=== PATIENT | male | born 1975 | race Caucasian/White ===

== ENCOUNTER 2018-02-27 15:52 | Inpatient (IN) | payer BC ==
[2018-02-27] MEDS ORDERED: fentaNYL 100 MCG/2 ML SDV IVPUSH PRN ×2 (16:56→21:31)
[2018-02-27] MEDS ORDERED: Morphine 2 MG/ML Syringe IVPUSH ONE (17:00)
[2018-02-27] MEDS ORDERED: Ondansetron 4 MG/2 ML SDV IV PRN ×2 (17:00→21:33)
[2018-02-27] MEDS: Potassium Chloride 10 MEQ in Premix Bag 1 BAG IV SCH ×2 (17:11→18:44)
[2018-02-27] MEDS: Sodium Chloride 0.9% 1,000 ML IV SCH ×2 (17:12→23:14)
--- NOTE | 2018-02-27 17:14 | PCM.HP ---
H&P History of Present Illness - General Date of Service: 02/27/18 Admit Problem/Dx: Admission Diagnosis/Problem Admission Diagnosis/Problem Acute gastritis Source of Information: Patient History Limitations: Reports: No Limitations - History of Present Illness Initial Comments - Free Text/Narative: Patient is 48 y/o white male with no significant PMH except for GERD. He started having abdominal cramps on Saturday. He took some kind of Tea. Cramp got worse but eventually he got relieved. Yesterday the abdominal cramps recurred and it was associated with vomiting. He reports several episode of vomiting. He can barely hold anything down. Vomit is coffee ground but denies linda blood. He has nausea, no fever or chills. No diarrhea. Bowel movement is normal. No melena, hematochezia or hematemesis. Abdominal cramp is diffuse, no relieving or aggravating factor. He said he has never had anything like this in the past. He notes traveling to [place] and ate outside with family. No body else is reported sick. He saw his PCP in the clinic today. He was found to be dehydrated with acute kidney injury. Creatinine bumped up to 1.8 from baseline of 0.9 3 years ago. PCP called for admission evaluation. Onset of Symptoms: Reports: Gradual Duration of Symptoms: Reports: Day(s):, Getting Worse Location: Reports: Abdomen Quality: Reports: Ache, Dull Severity: Severe Improves with: Reports: None Worsens with: Reports: None Context: Reports: Other Associated Symptoms: Reports: Nausea/Vomiting, Weakness - Related Data Allergies/Adverse Reactions: Allergies Allergy/AdvReac Type Severity Reaction Status Date / Time No Known Allergies Allergy Verified 02/27/18 16:51 Home Medications: Home Meds . [No Known Home Meds] 02/27/18 [History] Past Medical History HEENT History: Reports: Impaired Vision Gastrointestinal History: Reports: Diverticulosis Social & Family History - Family History Family Medical History: Noncontributory - Tobacco Use Smoking Status *Q: Never Smoker Second Hand Smoke Exposure: No - Caffeine Use Caffeine Use: Reports: None - Recreational Drug Use Recreational Drug Use: No H&P Review of Systems - Review of Systems: Review Of Systems: See Below General: Reports: Malaise, Weakness, Decreased Appetite HEENT: Reports: No Symptoms, Other Pulmonary: Reports: No Symptoms Cardiovascular: Reports: No Symptoms Gastrointestinal: Reports: Abdominal Pain, Anorexia, Decreased Appetite, Distension, Nausea, Vomiting Genitourinary: Reports: No Symptoms Musculoskeletal: Reports: No Symptoms Skin: Reports: No Symptoms Psychiatric: Reports: No Symptoms Neurological: Reports: No Symptoms Hematologic/Lymphatic: Reports: No Symptoms Immunologic: Reports: No Symptoms Exam - Exam Exam: See Below - Vital Signs Vital Signs: Last Vital Signs Temp 99.2 F 02/27/18 16:11 Pulse 113 H 02/27/18 16:11 Resp 20 02/27/18 16:11 BP 123/94 H 02/27/18 16:11 Pulse Ox 100 02/27/18 16:11 Weight: 206 lb 12.8 oz - Exam Quality Assessment: DVT Prophylaxis General: Alert, Oriented, Cooperative, Moderate Distress HEENT: Conjunctiva Clear Neck: Supple Lungs: Clear to Auscultation Cardiovascular: Tachycardia GI/Abdominal Exam: Normal Bowel Sounds, Soft, Non-Tender, No Organomegaly, Hernia (Male) Exam: No Hernia Rectal (Males) Exam: Deferred Back Exam: Normal Inspection Extremities: Normal Inspection Skin: Warm, Dry, Intact Neurological: Cranial Nerves Intact, Reflexes Equal Bilateral Neuro Extensive - Mental Status: Alert, Oriented x3, Normal Mood/Affect, Normal Cognition, Memory Intact Neuro Extensive - Motor, Sensory, Reflexes: CN II-XII Intact, Normal Gait, Normal Reflexes Psychiatric: Alert, Normal Affect, Normal Mood (Dry oral mucosa ) - Problem List (1) Acute gastritis SNOMED Code(s): 71587505 ICD Code: K29.00 - ACUTE GASTRITIS WITHOUT BLEEDING Status: Acute Current Visit: Yes (2) Nausea & vomiting SNOMED Code(s): 69440064 ICD Code: R11.2 - NAUSEA WITH VOMITING, UNSPECIFIED Status: Acute Current Visit: Yes (3) Acute kidney injury SNOMED Code(s): 50718413 ICD Code: N17.9 - ACUTE KIDNEY FAILURE, UNSPECIFIED Status: Acute Priority: High Current Visit: Yes Problem List Initiated/Reviewed/Updated: Yes Orders Last 24hrs: Active Orders 24 hr Category Date Time Status Patient Status [ADT] Routine ADT 02/27/18 16:43 Ordered Antiembolic Devices [RC] .Routine Care 02/27/18 16:47 Ordered Intake and Output [RC] QSHIFT Care 02/27/18 16:45 Ordered VTE/DVT Education [RC] PER UNIT ROUTINE Care 02/27/18 16:47 Ordered Vital Signs [RC] Q4H Care 02/27/18 16:43 Ordered Clear Liquid Diet [DIET] Diet 02/27/18 Dinner Ordered Regular Diet [DIET] Diet 02/27/18 Dinner Ordered BASIC METABOLIC PANEL,BMP [CHEM] Routine Lab 02/27/18 18:00 Ordered INR,PT,PROTHROMBIN TIME [COAG] Routine Lab 02/27/18 16:43 Ordered PTT,PARTIAL THROMBOPLSTIN TIME [COAG] Routine Lab 02/27/18 16:43 Ordered Heparin Sodium Med 02/27/18 21:00 Ordered 5,000 units SUBCUT Q12HR Ondansetron [Zofran] Med 02/27/18 17:00 Ordered 4 mg IV Q6HR PRN Pantoprazole [ProTONIX IV] 40 mg Med 02/27/18 17:00 Ordered Sodium Chloride 0.9% [Normal Saline] 100 ml IV Q12H Potassium Chloride [KCl 10 MEQ in Water 100 ML] 10 meq Med 02/27/18 17:00 Ordered Premix Bag 1 bag IV Q2H Sodium Chloride 0.9% @ 150 MLS/HR (1000ml) Med 02/27/18 17:00 Ordered Sodium Chloride 0.9% [Normal Saline] 1,000 ml IV ASDIRECTED fentaNYL [Sublimaze] Med 02/27/18 16:56 Ordered 25 mcg IVPUSH Q4H PRN DVT/VTE Prophylaxis Reflex [OM.PC] Routine Oth 02/27/18 16:43 Ordered Resuscitation Status Routine Resus Stat 02/27/18 16:43 Ordered Medication Orders Fentanyl (Sublimaze) 25 mcg IVPUSH Q4H PRN PRN Reason: Pain Heparin Sodium (Porcine) (Heparin Sodium) 5,000 units SUBCUT Q12HR RODOLFO Pantoprazole Sodium 40 mg/ (Sodium Chloride) 100 mls @ 200 mls/hr IV Q12H RODOLFO Sodium Chloride (Normal Saline) 1,000 mls @ 150 mls/hr IV ASDIRECTED RODOLFO Potassium Chloride 10 meq/ (Premix) 100 mls @ 100 mls/hr IV Q2H RODOLFO Stop: 02/27/18 19:59 Assessment/Plan Comment:: Assessment/Plan #Acute gastritis -IV pantoprazole 40 mg bid -Zofran prn for pain -Adequate pain control #Acute Kidney Injury -This pre-renal Azotemia from dehydration -Aggressive IVF hydration -BMP q6h -Avoid all nephrotoxic agents -Renal US #Abnormal liver test -This could be due to the acute gastritis -will repeat LFT in the AM #H/O GERD -Maalox prn -IV pantoprazole #Diet as tolerated #Full code
[2018-02-27] MEDS: Pantoprazole 40 MG in Sodium Chloride 0.9% 100 ML IV SCH (17:40)
[2018-02-27] MEDS ORDERED: Dicyclomine 20 MG/2 ML SDV IM ONE (21:25)
[2018-02-27] MEDS ORDERED: HYDROmorphone 4 MG/ML Syringe IVPUSH PRN (21:27)
[2018-02-27] MEDS: Metoclopramide 10 MG/2 ML SDV IVPUSH PRN (21:57)
[2018-02-27] MEDS: Heparin Sodium 5,000 Units/ML Vial SUBCUT SCH (21:59)
[2018-02-28] MEDS: Pantoprazole 40 MG in Sodium Chloride 0.9% 100 ML IV SCH (04:36)
[2018-02-28] MEDS: Sodium Chloride 0.9% 1,000 ML IV SCH (06:42)
[2018-02-28] MEDS: Metoclopramide 10 MG/2 ML SDV IVPUSH PRN (06:50)
[2018-02-28] MEDS ORDERED: Potassium Chloride 10 MEQ in Premix Bag 1 BAG IV ONE (08:33)
[2018-02-28] MEDS ORDERED: Acetaminophen/oxyCODONE 325-5 MG Tab PO PRN (08:34)
[2018-02-28 09:18] LABS: CHLORIDE,CL 88 mmol/L (101-111); SODIUM,NA 133 mmol/L (135-145)
--- NOTE | 2018-02-28 09:53 | CT ---
Clinical history: 42-year-old hospitalized 206 pound dehydrated diabetic male with distended abdomen and fecal smelling emesis. Scan technique: Volume acquisition of data emergency unenhanced CT scan abdomen and pelvis obtained w hile the patient was lying supine on the Siemens multi slice CT scanner [place], [place]. All data archived in the PACS system for storage, reformatting and study. Interpretation: Abnormal. 1. *Midline, supraumbilical, ventral wall hernia with incarcerated loop of small bowel and associated mechanical bowel obstruction. Defect measures 3.5 cm in width and 2.5 cm in vertical length. 2. Stomach, jejunum and ileum fluid distended. No abdominal/pelvic mass lesion or mesenteric/retroper itoneal lymphadenopathy. 3. Normal gallbladder, unenhanced liver, spleen, pancreas and adrenal glands. 4. Normal unenhanced kidneys. No sign of cortical mass, nephrolithiasis or obstructive uropathy. Urin sheng bladder unremarkable. 5. Normal caliber aortoiliac vessels. Normal lumbar spine. Lung bases clear. 6. No inflammatory "dirty" peritoneal fat, ascites or free intraperitoneal air. No femoral or inguina l hernias. CONCLUSION: Large supraumbilical ventral wall hernia with associated evidence of mechanical small bow el obstruction.
[2018-02-28] MEDS: Heparin Sodium 5,000 Units/ML Vial SUBCUT SCH (10:02)
--- NOTE | 2018-02-28 10:32 | PCM.DCSUM1 ---
Discharge Summary - Hospital Course HPI Initial Comments: Patient is 48 y/o white male with no significant PMH except for GERD. He presented with abdominal pain, nausea and vomiting x 3 days. He notes constipation but says endorsed flatulence. He was sent from clinic after he was evaluated for above and found to have acute kidney injury and dehydration. He was admitted for BRANDON due to pre-renal azotemia and gastritis vs bowel obstruction. His creatinine has improved with IV hydration but vomiting persists. He still has not move his bowel. Passed gas yesterday but not today. Vomit is feculent this morning. It was jjust clear liquid yesterday. CT abdomen done this morning shows mechanical bowel obstruction. NGT was placed. patient is being discharge to [facility] for further management. His potassium is 3.1 and being replaced. I spoke with Dr. Ruiz who accepts responsibility for the patient. - Discharge Data Discharge Date: 02/28/18 Discharge Disposition: DC/Tfer to [facility] Condition: Good - Discharge Diagnosis/Problem(s) (1) Acute gastritis SNOMED Code(s): 33983212 ICD Code: K29.00 - ACUTE GASTRITIS WITHOUT BLEEDING Status: Acute Current Visit: Yes (2) Nausea & vomiting SNOMED Code(s): 51939336 ICD Code: R11.2 - NAUSEA WITH VOMITING, UNSPECIFIED Status: Acute Current Visit: Yes Qualifiers: Vomiting type: vomiting of fecal matter Qualified Code(s): R11.13 - Vomiting of fecal matter (3) Acute kidney injury SNOMED Code(s): 71172193 ICD Code: N17.9 - ACUTE KIDNEY FAILURE, UNSPECIFIED Status: Acute Priority: High Current Visit: Yes - Patient Instructions Diet: NPO - Discharge Plan Home Medications: Home Meds . [No Known Home Meds] 02/27/18 [History] - General Info Admission Dx/Problem (Free Text: Admission Diagnosis/Problem Admission Diagnosis/Problem Acute gastritis Functional Status: Reports: Pain Controlled - Review of Systems General: Reports: No Symptoms HEENT: Reports: No Symptoms Pulmonary: Reports: No Symptoms Cardiovascular: Reports: No Symptoms Gastrointestinal: Reports: Abdominal Pain, Decreased Appetite, Vomiting Genitourinary: Reports: No Symptoms Musculoskeletal: Reports: No Symptoms Skin: Reports: No Symptoms Neurological: Reports: No Symptoms Psychiatric: Reports: No Symptoms - Patient Data Vitals - Most Recent: Last Vital Signs Temp 99.8 F 02/28/18 07:24 Pulse 111 H 02/28/18 07:24 Resp 16 02/28/18 07:24 BP 132/85 02/28/18 07:24 Pulse Ox 96 02/28/18 07:24 Weight - Most Recent: 206 lb 12.8 oz I&O - Last 24 hours: Intake & Output 02/27/18 02/28/18 02/28/18 22:59 06:59 14:59 Intake Total 600 1741 Output Total 900 100 Balance -300 1641 Lab Results - Last 24 hrs: Laboratory Results - last 24 hr 02/27/18 02/27/18 02/28/18 Range/Units 19:15 19:15 08:50 WBC (5.0-10.0) 10^3/uL RBC (4.6-6.2) 10^6/uL Hgb (14.0-18.0) g/dL Hct (40.0-54.0) % MCV (80-100) fL MCH (27.0-34.0) pg MCHC (33.0-35.0) g/dL Plt Count (150-450) 10^3/uL Neut % (Auto) (42.2-75.2) % Lymph % (Auto) (20.5-50.1) % [place] % (Auto) (2-8) % Eos % (Auto) (1.0-3.0) % Baso % (Auto) (0.0-1.0) % Add Manual Diff Neutrophils % (Manual) (42-75) % Band Neutrophils % % Lymphocytes % (Manual) (20-50) % Monocytes % (Manual) (2-8) % PT 10.4 (9.0-12.0) SEC INR 1.0 (0.9-1.2) APTT 27.5 (22.0-34.0) SEC Sodium 132 L 133 L (135-145) mmol/L Potassium 3.4 L 3.1 L (3.6-5.0) mmol/L Chloride 87 L 88 L (101-111) mmol/L Carbon Dioxide 31.0 32.0 H (21.0-31.0) mmol/L Anion Gap 17.4 16.1 BUN 45 H 48 H (7-18) mg/dL Creatinine 1.5 H 1.2 (0.6-1.3) mg/dL Est Cr Clr Drug Dosing 66.24 82.80 mL/min Estimated GFR (MDRD) 51 > 60 Glucose 151 H 164 H (74-105) mg/dL Calcium 8.9 8.1 L (8.4-10.2) mg/dl Total Bilirubin 1.4 H (0.2-1.0) mg/dL Direct Bilirubin 0.3 H (0.0-0.2) mg/dL Indirect Bilirubin 1.1 AST 23 (10-42) IU/L ALT 23 (10-60) IU/L Alkaline Phosphatase 41 L (42-121) IU/L Total Protein 7.3 (6.7-8.2) g/dl Albumin 3.7 (3.2-5.5) g/dl Globulin 3.6 Albumin/Globulin Ratio 1.03 /05/12 Range/Units 08:50 WBC 5.5 (5.0-10.0) 10^3/uL RBC 5.28 (4.6-6.2) 10^6/uL Hgb 15.9 (14.0-18.0) g/dL Hct 45.6 (40.0-54.0) % MCV 86.4 (80-100) fL MCH 30.1 (27.0-34.0) pg MCHC 34.9 (33.0-35.0) g/dL Plt Count 286 (150-450) 10^3/uL Neut % (Auto) 66.1 (42.2-75.2) % Lymph % (Auto) 12.9 L (20.5-50.1) % [place] % (Auto) 20.4 H (2-8) % Eos % (Auto) 0.2 L (1.0-3.0) % Baso % (Auto) 0.4 (0.0-1.0) % Add Manual Diff Yes Neutrophils % (Manual) 52 (42-75) % Band Neutrophils % 8 % Lymphocytes % (Manual) 18 L (20-50) % Monocytes % (Manual) 22 H (2-8) % PT (9.0-12.0) SEC INR (0.9-1.2) APTT (22.0-34.0) SEC Sodium (135-145) mmol/L Potassium (3.6-5.0) mmol/L Chloride (101-111) mmol/L Carbon Dioxide (21.0-31.0) mmol/L Anion Gap BUN (7-18) mg/dL Creatinine (0.6-1.3) mg/dL Est Cr Clr Drug Dosing mL/min Estimated GFR (MDRD) Glucose (74-105) mg/dL Calcium (8.4-10.2) mg/dl Total Bilirubin (0.2-1.0) mg/dL Direct Bilirubin (0.0-0.2) mg/dL Indirect Bilirubin AST (10-42) IU/L ALT (10-60) IU/L Alkaline Phosphatase (42-121) IU/L Total Protein (6.7-8.2) g/dl Albumin (3.2-5.5) g/dl Globulin Albumin/Globulin Ratio Med Orders - Current: Current Medications Fentanyl (Sublimaze) 25 mcg IVPUSH Q2H PRN PRN Reason: Pain Heparin Sodium (Porcine) (Heparin Sodium) 5,000 units SUBCUT Q12HR [facility] Last Admin: 02/28/18 10:02 Dose: Not Given Pantoprazole Sodium 40 mg/ (Sodium Chloride) 100 mls @ 200 mls/hr IV Q12H [facility] Last Admin: 02/28/18 04:36 Dose: 200 mls/hr Sodium Chloride (Normal Saline) 1,000 mls @ 150 mls/hr IV ASDIRECTED [facility] Last Admin: 02/28/18 06:42 Dose: 150 mls/hr Metoclopramide HCl (Reglan) 10 mg IVPUSH Q8H PRN PRN Reason: Nausea Last Admin: 02/28/18 06:50 Dose: 10 mg Ondansetron HCl (Zofran) 4 mg IV Q4H PRN PRN Reason: Nausea/Vomiting Last Admin: 02/28/18 04:10 Dose: 4 mg Oxycodone/Acetaminophen (Percocet 325-5 Mg) 1 tab PO Q4H PRN PRN Reason: Pain Discontinued Medications Dicyclomine HCl (Bentyl) 10 mg IM ONETIME ONE Stop: 02/27/18 21:26 Last Admin: 02/27/18 21:49 Dose: 10 mg Fentanyl (Sublimaze) 25 mcg IVPUSH Q4H PRN PRN Reason: Pain Last Admin: 02/27/18 18:54 Dose: 25 mcg Hydromorphone HCl (Dilaudid) 4 mg IVPUSH Q4H PRN PRN Reason: Pain Last Admin: 02/27/18 21:52 Dose: 4 mg Potassium Chloride 10 meq/ (Premix) 100 mls @ 100 mls/hr IV Q2H RODOLFO Stop: 02/27/18 19:59 Last Admin: 02/27/18 18:44 Dose: 100 mls/hr Potassium Chloride 10 meq/ (Premix) 100 mls @ 100 mls/hr IV ONETIME ONE Stop: 02/28/18 09:32 Last Admin: 02/28/18 09:54 Dose: 100 mls/hr Morphine Sulfate (Morphine) 2 mg IVPUSH ONETIME ONE Stop: 02/27/18 17:01 Last Admin: 02/27/18 17:11 Dose: 2 mg Ondansetron HCl (Zofran) 4 mg IV Q6HR PRN PRN Reason: Nausea/Vomiting Last Admin: 02/27/18 17:11 Dose: 4 mg - Exam Quality Assessment: Reports: DVT Prophylaxis General: Reports: Alert, Oriented HEENT: Reports: Pupils Equal, Pupils Reactive, EOMI, Mucous Membr. Moist/[place] Neck: Reports: Supple Lungs: Reports: Clear to Auscultation Cardiovascular: Reports: Regular Rate GI/Abdominal Exam: Abnormal Bowel Sounds (Male) Exam: Deferred Back Exam: Reports: Normal Inspection Extremities: Normal Inspection, Normal Range of Motion, No Pedal Edema, Normal Capillary Refill Skin: Reports: Warm, Dry, Intact Wound/Incisions: Reports: Other Neurological: Reports: No New Focal Deficit Psy/Mental Status: Reports: Alert, Normal Affect, Normal Mood
== END 2018-02-28 11:00 | DRG 469 ==
LOC: UNDOADMIN 15:56 → DL.MS 15:56
PROVIDERS: ADMIT Student in an Organized Health Care Education/Training Program; ATTEND Student in an Organized Health Care Education/Training Program
DX: N17.9 Acute kidney failure, unspecified (principal); K56.609 Unspecified intestinal obstruction, unspecified as to partial versus complete obstruction; K29.00 Acute gastritis without bleeding; K21.9 Gastro-esophageal reflux disease without esophagitis; E86.0 Dehydration; R53.1 Weakness; H54.7 Unspecified visual loss; K57.90 Diverticulosis of intestine, part unspecified, without perforation or abscess without bleeding; R53.81 Other malaise; R79.89 Other specified abnormal findings of blood chemistry
CPT/HCPCS: 36415; 74176; 80048; 80076; 85025; 85610; 85730; C9113; J0500; J1170; J2270; J2405; J2765; J3010; J3480; J7030; J7050